=== PATIENT | female | born 1965 | race Caucasian/White ===

== ENCOUNTER 2022-12-07 15:54 | Outpatient (OUT) | payer BC, SELFPAY ==
[2022-12-07 16:42] LABS: Anion Gap 11.9; BUN Creatinine Ratio 27.4; Calcium 9.5 mg/dL (8.5-10.1); Carbon Dioxide 30.9 mmol/L (21.0-32.0); Chloride 102 mmol/L (98-107); Estimated GFR (African America >60 (>=60); Estimated GFR (Non-African Ame >60 (>=60); Glucose 120 mg/dL (74-106); Potassium 3.8 mmol/L (3.5-5.1); Sodium 141 mmol/L (136-145)
[2022-12-09 13:07] LABS: PTH, Intact 26 pg/mL (15-65)
== END 2022-12-07 15:55 | disposition home or self-care (01) ==
LOC: LAB 16:00
PROVIDERS: PCP Nurse Practitioner; Visit Provider Nurse Practitioner
DX: E55.9 Vitamin D deficiency, unspecified (principal)
CPT/HCPCS: 36415; 80048; 82306; 83970

== ENCOUNTER 2023-01-31 10:47 | Outpatient (OUT) | payer BC, SELFPAY ==
--- NOTE | 2023-01-31 11:15 | XR_ITS ---
The [address] [address] Patient Name: BEATRIZ AVERY MRN: [id number] date: 1965 Sex: F Assigned Patient Location: [facility] Current Patient Location: [facility] Accession/Order Number: [id number] Exam Date: 01/31/2023 11:00 Report Date: 01/31/2023 19:14 At the request of: SUJATHA DIAZ Procedure: XR elbow RT min 3V EXAM: XR shoulder RT min 2V, XR elbow RT min 3V HISTORY: Acute Pain Of Right Shoulder M25.511 COMPARISON: None. TECHNIQUE: 3 views of the right shoulder and 3 views of the right elbow were obtained. FINDINGS/impression: Right shoulder: There is mild osteoarthritis at the right acromioclavicular joint. The glenohumeral joint is preserved. Surgical clips are seen at the right axilla. 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 There is mild soft tissue swelling posterior to the right elbow. No acute fracture or subluxation is seen. Electronically authenticated by: KOMAL CAR Date: 01/31/2023 19:14
--- NOTE | 2023-01-31 11:15 | XR_ITS ---
The [address] [address] Patient Name: BEATRIZ AVERY MRN: [id number] date: 1965 Sex: F Assigned Patient Location: [facility] Current Patient Location: [facility] Accession/Order Number: [id number] Exam Date: 01/31/2023 11:00 Report Date: 01/31/2023 19:14 At the request of: SUJATHA DIAZ Procedure: XR shoulder RT min 2V EXAM: XR shoulder RT min 2V, XR elbow RT min 3V HISTORY: Acute Pain Of Right Shoulder M25.511 COMPARISON: None. TECHNIQUE: 3 views of the right shoulder and 3 views of the right elbow were obtained. FINDINGS/impression: Right shoulder: There is mild osteoarthritis at the right acromioclavicular joint. The glenohumeral joint is preserved. Surgical clips are seen at the right axilla. 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 There is mild soft tissue swelling posterior to the right elbow. No acute fracture or subluxation is seen. Electronically authenticated by: KOMAL CAR Date: 01/31/2023 19:14
== END 2023-01-31 10:48 | disposition home or self-care (01) ==
LOC: RAD 10:48
PROVIDERS: PCP Nurse Practitioner; Visit Provider Orthopaedic Surgery
DX: M25.521 Pain in right elbow (principal); M25.511 Pain in right shoulder; M19.011 Primary osteoarthritis, right shoulder
CPT/HCPCS: 73030; 73080

== ENCOUNTER 2023-02-17 15:57 | Outpatient (OUT) | payer BC, SELFPAY ==
--- OUTSIDE RECORDS SUMMARY | 2023-02-17 16:07 | XMS_ITS | CCD ---
Author Name Unknown Address [address] [place] [address] Organization [facility] Care Team Providers Care Student Counselor Name Role Phone KAREN VIEIRA Referring Unavailable DARIEL, KAREN CRISTO Primary Care Unavailable DARIELKARENIN Referring Unavailable DARIEL, KAREN MARROQUININ Primary Care Unavailable DARIEL, KAREN MEYERS Referring Unavailable DARIEL, KAREN MARROQUININ Primary Care Unavailable DARIEL, KAREN MEYERS Referring Unavailable DARIEL, KAREN MEYERS Primary Care Unavailable LILLY UNDERWOOD Referring Unavailable DARIEL, KAREN MEYERS Primary Care Unavailable LILLY UNDERWOOD Referring Unavailable DARIEL, KAREN MEYERS Primary Care Unavailable SchloemerYaquelin Primary Care Physician Unavaila ble SchloemerYaquelin Unavailable Unavailable Dariel, Karen Marroquinin Primary Care Provider DR GODWIN LOPEZ Consulting Unavailable JOHN, DR CONNELLY Admitting Unavailable JOHN, DR CONNELLY Attending Unavailable [facility] Primary Care Unava ilable AICHHOLZ, CONSULTING GROUP ANALYST SABA Admitting Unavailable AICHHOLZ, CONSULTING GROUP ANALYST SABA Attending Unavailable AICHHOLZ, CONSULTING GROUP ANALYST SABA Primary Care Unavailable AICHHOLZ, CONSULTING GROUP ANALYST SABA Consulting Unavailable Lilly Underwood MD Attending Unavailable Aichholz WELFARE VISITOR-CONSULTING GROUP ANALYST, Saba Anabelle Primary Care Unava Lilly Gregory MD Attending Unavailable Aichholz WELFARE VISITOR-CONSULTING GROUP ANALYST, Saba Ahn Primary Care Unava ilLilly Chamberlain MD Attending Unavailable Aichholz WELFARE VISITOR-CONSULTING GROUP ANALYST, Saba Ahn Primary Care Unava Lilly Gregory MD Attending Unavailable Lilly Underwood MD Attending Unavailable Aichholz WELFARE VISITOR-CONSULTING GROUP ANALYST, Saab Ahn Primary Care Unava Lilly Gregory MD Attending Unavailable Allergies Allergy Classification Reported Allergen(s) Allergy Type Date of Onset Reaction(s) Facility (1 source) No Known Medication Allergies; Translations: [No Known Medication Allergies] Propensity to adverse reactions to drug (disorder) [facility] Repository Medications Current Medications Medication Drug Class(es) Dates Sig (Normalized) Sig (Original) Diphenhydramine-APAP, sleep, (TYLENOL PM EXTRA STRENGTH PO) (2 sources) Diphenhydramine- A PAP, sleep, (TYLENOL PM EXTRA STRENGTH PO) Take by mouth nightly 0 Active Loratadine / Pseudoephedrine (2 sources) alpha-Adrenergic Agonist Loratadine-Pseudo ephedrine (CLARITIN-D 24 HOUR PO) Take by mouth daily. 0 Active tamoxifen 20 mg oral tablet (3 sources) Estrogen Agonist/Antagoni st Start: 09-26-2018 tamoxifen (NOLVADEX) 20 MG tablet Completed/Discontinued Medications Medication Drug Class(es) Dates Sig (Normalized) Sig (Original) loratadine 10 mg oral tablet (1 source) take 1 tablet by jonatan th once daily Claritin 10 mg oral tablet take 1 tablet (10 mg) by oral route once daily LORazepam 1 mg oral tablet (3 sources) Benzodiazepine take 1 tablet by jonatan th twice daily Ativan 1 mg oral tablet take 1 tablet (1 mg) by oral route 2 times per day take 1 tablet by jonatan th once daily as needed for anxiety LORazepam (ATIVAN) 1 MG tablet Take 1 mg by mouth nightly as needed for Anxiety.. 0 Active melatonin 5 mg oral tablet (3 sources) take 1 tablet by jonatan th once daily at bedtime melatonin 5 mg oral tablet take 1 tablet by oral route once a day (at bedtime) Melatonin 5 MG C APS Take by mouth nightly as needed 0 Active meloxicam 15 mg oral tablet (1 source) Nonsteroidal Anti-inflammatory Drug take 1 tablet by mouth once daily Mobic 15 mg oral tablet take 1 tablet (15 mg) by oral route once daily Problems Active Problems Problem Classification Problem Date Documented Date Episodic/Chronic Anxiety disorders (1 source) Anxiety disorder, unspecified Chronic Cancer of breast (1 source) Malignant neoplasm of unspecified site of unspecified female breast Chronic Diabetes mellitus without complication (4 sources) Other abnormal glucose; Translations: [OTHER ABNORMAL GLUCOSE] Onset: 10-30-2021 Episodic Mood disorders (1 source) Major depressive disorder, single episode, unspecified; Translations: [NANCY DEPRESS D/O SINGLE EPIS UNS] Onset: 02-23-2021 Chronic Osteoarthritis (2 sources) Osteoarthritis of right knee joint; Translations: [Primary osteoarthritis of right knee] Onset: 09-20-2017 09-20-2017 Other non-traumatic joint disorders (2 sources) Arthritis of knee; Translations: [Arthritis of knee] Onset: 10-06-2017 10-06-2017 Chronic Other nutritional; endocrine; and metabolic disorders (1 source) Obesity, unspecified; Translations: [OBESITY UNSPECIFIED] Onset: 11-03-2021 Chronic Other skin disorders (1 source) Actinic keratosis Onset: 12-10-2019 Episodic Residual codes; unclassified (1 source) Obstructive sleep apnea syndrome; Translations: [Obstructive sleep apnea] Chronic Unclassified (1 source) CONTACT W/AND (SUSP) EXPOS COVID-19; Translations: [CONTACT W/AND (SUSP) EXPOS COVID-19] Onset: 02-23-2021 Past or Other Problems Problem Classification Problem Date Documented Da te Episodic/Chronic Abdominal pain (1 source) Left lower quadrant pain; Translations: [Left groin pain] Episodic Other aftercare (1 source) Other assisted (current) drug therapy; Translations: [OTH MATERIALS INSPECTOR CURRENT DRUG THERAPY] Onset: 02-23-2021 Episodic Other upper respiratory infections (4 sources) Acute pharyngitis, unspecified; Translations: [Acute upper respiratory infection, unspecified] Onset: 02-22-2021 Episodic Results Test Name Value Interpretation Reference Range Facility .eGFRon 03-15-2022 GFR/1.73 sq M.predicted MDRD (S/P/Bld) [Vol rate/Area] mL/min/{1.73_m2} Normal >=60 [facility] Comment on above: Result Comment: [facility] Laboratories have implemented the eGFR calculation approach that does not have a coefficient for race and that conforms to the NKF-ASN Task Force Recommendations. Stages of Chronic Kidney Disease GFR Stage 3a Mild to moderate loss of kidney function 59 to 45 Stage 3b Moderate to severe loss of kidney function 44 to 33 Stage 4 Severe loss of kidney function 29 to 15 Stage 5 Kidney failure Less than 15 GFR calculated using the CKD-Epi Creatinine Equation (2020): eGFR = 142 X min(SCr/?, 1)? X max(SCr /?, 1)-1.200 X 0.9938Age X 1.012 [if female] Abbreviations/Units: eGFR (estimated glomerular filtration rate) = mL/min/1.73 m2 SCr (standardized serum creatinine) = mg/dL ? = 0.7 (females) or 0.9 (males) ? = -0.241 (females) or -0.302 (males) min = indicates the minimum of SCr/? or 1 max = indicates the maximum of SCr/? or 1 Age = years Performed By: #### E GFR #### [facility] (UNKNOWN) [address] [place] [address] CA 15-3on 03-15-2022 CA 15-3 6.5 unit/mL Normal 0.0-31.3 [facility] Comment on above: Result Comment: Test ing performed using the [employer] [place] Access BR Monitor assay. The concentration of CA 15-3 antigen in a given specimen determined with assays from different manufacturers can vary due to differences in assay methods and reagent specificity. Values obtained with different assay methods cannot be used interchangeably. This device is indicated for use in the measurement of CA 15-3 antigen to aid in the management of breast cancer patients. Serial testing for CA 15-3 antigen concentrations should be used in conjunction with other clinical methods for monitoring breast cancer. Serum or plasma CA 15-3 antigen concentrations should not be interpreted as absolute evidence for the presence or absence of cancer. The Access BR Monitor Assay should not be used as a cancer screening test. Performed By: #### C A15-3 #### [facility] [address] [place] [address] CBC w/ Diffon 03-15-2022 Erythrocyte distribution width (RBC) [Ratio] 13.4 % Normal 11.6-14.8 [facility] Comment on above: Performed By: #### C BC #### [facility] (UNKNOWN) [address] [place] [address] Hematocrit (Bld) [Volume fraction] 39.3 % Normal 36.0-46.0 [facility] Comment on above: Performed By: #### C BC #### [facility] (UNKNOWN) [address] [place] [address] Hemoglobin (Bld) [Mass/Vol] 13.4 g/dL Normal 12.0-16.0 [facility] Comment on above: Performed By: #### C BC #### [facility] (UNKNOWN) [address] [place] [address] MCH (RBC) [Entitic mass] 30.1 pg Normal 27.0-35.0 [facility] Comment on above: Performed By: #### C BC #### [facility] (UNKNOWN) [address] [place] [address] MCHC 34.0 % Normal 31.0-37.0 [facility] Comment on above: Performed By: #### C BC #### [facility] (UNKNOWN) [address] [place] [address] MCV (RBC) [Entitic vol] 88.5 fL Normal 80.0-100.0 [facility] Comment on above: Performed By: #### C BC #### [facility] (UNKNOWN) [address] [place] [address] Platelet 316 x10*3/mcL Normal 150-350 [facility] Comment on above: Performed By: #### C BC #### [facility] (UNKNOWN) [address] [place] [address] Platelet mean volume (Bld) [Entitic vol] 7.0 fL Normal 6.7-10.6 [facility] Comment on above: Performed By: #### C BC #### [facility] (UNKNOWN) [address] [place] [address] RBC 4.45 x10*6/mcL Normal 3.80-5.20 [facility] Comment on above: Performed By: #### C BC #### [facility] (UNKNOWN) [address] [place] [address] WBC 10.0 x10*3/mcL Normal 4.5-11.0 [facility] Comment on above: Performed By: #### C BC #### [facility] (UNKNOWN) [address] [place] [address] CEAon 03-15-2022 CEA 1.4 ng/mL Normal <=5.0 [facility] Comment on above: Result Comment: CEA Normal Ranges: Male & Female Non-Smoker: <3.0 ng/mL Smoker: <5.0 ng/mL Testing performed using the [employer] Access CEA assay. The concentration of CEA in a given specimen determined with different manufacturers can vary due to differences in assay methods and reagent specificity. Values obtained with different assay methods cannot be used interchangeably. Performed By: #### C EA #### [facility] [address] [place] [address] CMPon 03-15-2022 Albumin [Mass/Vol] 4.8 g/dL Normal 3.5-5.7 [facility] Comment on above: Performed By: #### C OMP #### [facility] (UNKNOWN) [address] [place] [address] Albumin/Globulin [Mass ratio] 1.8 {ratio} Normal 1.1-2.2 [facility] Comment on above: Performed By: #### C OMP #### [facility] (UNKNOWN) [address] [place] [address] Alk Phos 43 IU/L Normal 34-104 [facility] Comment on above: Performed By: #### C OMP #### [facility] (UNKNOWN) [address] [place] [address] ALT [Catalytic activity/Vol] 55 U/L High 7-52 [facility] Comment on above: Performed By: #### C OMP #### [facility] (UNKNOWN) [address] [place] [address] Anion gap [Moles/Vol] 10 mmol/L Normal 7-17 [facility] Comment on above: Performed By: #### C OMP #### [facility] (UNKNOWN) [address] [place] [address] AST [Catalytic activity/Vol] 27 U/L Normal 13-39 [facility] Comment on above: Performed By: #### C OMP #### [facility] (UNKNOWN) [address] [place] [address] Bili Total 0.7 mg/dL Normal 0.3-1.0 [facility] Comment on above: Performed By: #### C OMP #### [facility] (UNKNOWN) [address] [facility] [address] Calcium [Mass/Vol] 9.4 mg/dL Normal 8.6-10.2 [facility] Comment on above: Performed By: #### C OMP #### [facility] (UNKNOWN) [address] [place] [address] Chloride [Moles/Vol] 103 mmol/L Normal 98-107 [facility] Comment on above: Performed By: #### C OMP #### [facility] (UNKNOWN) [address] [place] [address] CO2 [Moles/Vol] 30 mmol/L Normal 21-31 [facility] Comment on above: Performed By: #### C OMP #### [facility] (UNKNOWN) [address] [place] [address] Creatinine [Mass/Vol] 0.8 mg/dL Normal 0.6-1.3 [facility] Comment on above: Performed By: #### C OMP #### [facility] (UNKNOWN) [address] [place] [address] Glucose [Mass/Vol] 116 mg/dL High 70-99 [facility] Comment on above: Performed By: #### C OMP #### [facility] (UNKNOWN) [address] [place] [address] Potassium [Moles/Vol] 4.0 mmol/L Normal 3.5-5.1 [facility] Comment on above: Performed By: #### C OMP #### [facility] (UNKNOWN) [address] [facility] [place] [address] Protein [Mass/Vol] 7.5 g/dL Normal 6.4-8.9 [facility] Comment on above: Performed By: #### C OMP #### [facility] (UNKNOWN) [address] [facility] [place] [address] Sodium [Moles/Vol] 139 mmol/L Normal 136-145 [facility] Comment on above: Performed By: #### C OMP #### [facility] (UNKNOWN) [address] [place] [address] Urea nitrogen [Mass/Vol] 16 mg/dL Normal 7-25 [facility] Comment on above: Performed By: #### C OMP #### [facility] (UNKNOWN) [address] [place] [address] Urea nitrogen/Creatinine [Mass ratio] 20.0 mg/mg Normal 10.0-20.0 [facility] Comment on above: Performed By: #### C OMP #### [facility] (UNKNOWN) [address] [place] [address] Diff Autoon 03-15-2022 Baso Absolute 0.1 x10*3/mcL Normal 0.0-0.2 [facility] Comment on above: Performed By: #### . Automated Diff #### [facility] (UNKNOWN) [address] [place] [address] Basophils/100 WBC (Bld) 0.9 % Normal 0.0-1.5 [facility] Comment on above: Performed By: #### . Automated Diff #### [facility] (UNKNOWN) [address] [place] [address] Eos Absolute 0.2 x10*3/mcL Normal 0.0-0.4 [facility] Comment on above: Performed By: #### . Automated Diff #### [facility] (UNKNOWN) [address] [place] [address] Eosinophils/100 WBC (Bld) 2.3 % Normal 0.0-5.4 [facility] Comment on above: Performed By: #### . Automated Diff #### [facility] (UNKNOWN) [address] [place] [address] Lymph Absolute 3.2 x10*3/mcL Normal 1.0-4.8 [facility] Comment on above: Performed By: #### . Automated Diff #### [facility] (UNKNOWN) [address] [place] [address] Lymphocytes/100 WBC (Bld) 32.1 % Normal 27.2-40.8 [facility] Comment on above: Performed By: #### . Automated Diff #### [facility] (UNKNOWN) [address] [place] [address] [place] Absolute 0.6 x10*3/mcL Normal 0.1-1.1 [facility] Comment on above: Performed By: #### . Automated Diff #### [facility] (UNKNOWN) [address] [place] [address] Monocytes/100 WBC (Bld) 6.2 % Normal 3.7-11.9 [facility] Comment on above: Performed By: #### . Automated Diff #### [facility] (UNKNOWN) [address] [place] [address] Neutro Absolute 5.8 x10*3/mcL Normal 1.8-7.7 [facility] Comment on above: Performed By: #### . Automated Diff #### [facility] (UNKNOWN) [address] [place] [address] Neutro Auto 58.5 % Normal 47.2-70.8 [facility] Comment on above: Performed By: #### . Automated Diff #### [facility] (UNKNOWN) [address] [place] [address] Medical Oncology Office/Clin ic Noteon 03-15-2022 Medical Oncology Office/Clinic Note History of Present Illness History of Present Illness: DIAGNOSIS: Stage II breast cancer of the right breast diagnosed by fine-needle aspiration 11/10/2016 underwent lumpectomy and sentinel lymph node biopsy tumor size 2.3 cm sentinel lymph node negative grade 3 ER positive AR positive HER-2/jose antonio negative PREVIOUS THERAPY: AC chemotherapy dose dense ?4 followed by Taxol weekly ?12 then to follow with radiation therapy and then hormonal therapy for 10 years l Date of first chemotherapy 12/10/2016 AC chemotherapy completed on 01/28/2017. Blood work confirms postmenopausal status therefore will be using anastrozole for hormone therapy. Weekly Taxol is postponed because of cellulitis and DVT of the arm and radiation has been started on 17 February 2017.Completed 21 treatments on 03/30/2017. Then started Taxol weekly ?12 first dose 04/01/2017 Last dose 06/17/2017 then started on Arimidex therapy plan is for 5-10 years. First day of Arimidex 06/27/2017 Received 1 dose of Prolia November 2017 had joint pain therefore discontinued and continued on Arimidex alone Arimidex was discontinued due to arthralgias on 05/26/2018 to restart with tamoxifen 20 mg daily Tamoxifen was discontinued on 08/02/2018 when there was concern about a blood clot in the left leg was no blood clot in the leg and then she underwent rheumatology work-up and improved her symptoms so tamoxifen was restarted at low-dose 10 mg a day on 11/07/2018 to escalate up to 20 mg than reduced back to 10 mg on 12/13/19 DIAGNOSTIC DATA: Bone density normal 06/03/2017 Colonoscopy 2014 released till 2019 Bilateral mammogram 11/14/2017 new 6 mm irregular density in the left breast ultrasound recommended Ultrasound breast 11/14/2017 5 mm lobulated density which could be a cyst biopsy recommended. Aspiration was done on 11/17/2017 and all collapsed therefore biopsy was not needed follow-up recommended Doppler at [facility] 08/03/2018 no signs of blood clots CT scan chest abdomen and pelvis [facility] [place] words lungs completely clear thyroid gland normal surgical clips noted in the right axilla 3.6 cm fluid collection in the right axilla 3 small hepatic lesions noted for which MRI is suggested mildly prominent mesenteric lymph nodes noted in the left upper abdomen but none greater than 1 cm no bony abnormalities noted MRI of liver and abdomen 08/17/2018 for lesions in the liver most compatible with benign hepatic hemangiomas Three-way view of the right foot 10/05/2018 Calcaneal spurring Mammogram 11/21/2018 [facility] normal Left hip x-ray at [facility] December 2018 normal Mammogram [facility] 11/21/2018 normal Symptoms of COVID-17 January 2020 but did not test positive Urine culture 03/23/2020 Klebsiella pneumonia was treated with Bactrim Colonoscopy by Dr. Couch 03/07/2020 1 hyperplastic polyp cleared for 5 years Mammogram 12/18/2019 [facility] normal edgardo and edgardo August 13 2020 Cesar is also vaccinated covid 19 completely vacationed covid 19 omicron feb 2021 giuseppe also she had UTI week prior was not hospitalized treated with zpack by Alex Greco in 2020 skin exam clear mammo august 2021 SURVEY DATA TECHNICIAN HISTORY: had a hysterectomy for cyst ovaries were left intact postmenopausal RECENT THERAPY: Tamoxifen therapy restarted on 11/07/2018 stopped on September 23 2020 due to side effects rash trouble breathing and vision stopped and went onto observation iv iron 11/07/2020 current therapy observation 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 Aliya drives herself in today for follow-up visit she was last seen here 6 months ago she is off the tamoxifen and she is on observation and doing well in fact she is not really on any routine medications at all but she has a new family doctor in [place] and nurse practitioner who wanted to get her on some new medication to help her with weight loss because she felt that a lot of things stemmed from that because she said she will actually has prediabetes however there was no insurance coverage for that She will sometimes have some chest discomfort and some even though she has a CPAP machine sometimes she will wake up gasping for air so I talked her about seeing the sleep clinic but she wants to wait right now and get ahead of some things financially There is a lot going on she lives at home with her they have no immediate trips planned just some maybe we can trips here and there but her grandson who was just born last summer has been diagnosed with a chromosomal abnormality Marilee syndrome he is actually already had heart surgery and has a lot of other medical things and this is actually necessitated their daughter the mother of the baby to resign from her full-time position because her grandson requires so much medical care so she and her are there a lot helping out not only with the baby but with the 4-year-old granddaughter also On exam her (more content not included)... Normal [facility] CBC AUTO DIFFon 10-30-2021 BASO # 0.1 103/ul Normal 0.0-0.1 [facility] Comment on above: Performed By: #### C BC #### [facility] [address] [place], [place] [address] Dr. Purnima Montez Basophils/100 WBC (Bld) 0.8 % Normal 0.2-2.0 [facility] Comment on above: Performed By: #### C BC #### [facility] [address] [place] [address] Dr. Purnima Montez EO # 0.2 103/ul Normal 0.0-0.7 [facility] Comment on above: Performed By: #### C BC #### [facility] [address] [place] [address] Dr. Purnima Montez Eosinophils/100 WBC (Bld) 2.4 % Normal 0.9-7.0 [facility] Comment on above: Performed By: #### C BC #### [facility] [address] [place] [address] Dr. Purnima Montez Erythrocyte distribution width (RBC) [Ratio] 12.7 % Normal 11.0-15.0 [facility] Comment on above: Performed By: #### C BC #### [facility] [address] [place] [address] Dr. Purnima Montez Hematocrit (Bld) [Volume fraction] 39.2 % Normal 36.0-48.0 [facility] Comment on above: Performed By: #### C BC #### [facility] [address] [place] [address] Dr. Purnima Montez Hemoglobin (Bld) [Mass/Vol] 12.7 g/dL Normal 12.0-16.0 [facility] Comment on above: Performed By: #### C BC #### [facility] [address] [place] [address] Dr. Purnima Montez IG # 0.03 10e3/ul Normal 0.00-0.03 [facility] Comment on above: Performed By: #### C BC #### [facility] [address] [place] [address] Dr. Purnima Montez IG % 0.4 % Normal 0.0-0.5 [facility] Comment on above: Performed By: #### C BC #### [facility] [address] [place] [address] Dr. Purnima Montez LYMPH # 2.8 103/ul Normal 1.2-3.8 [facility] Comment on above: Performed By: #### C BC #### [facility] [address] [place] [address] Dr. Purnima Montez Lymphocytes/100 WBC (Bld) 35.0 % Normal 20.5-60.0 [facility] Comment on above: Performed By: #### C BC #### [facility] [address] [place] [address] Dr. Purnima Montez MANUAL DIFF REQ NO Normal [facility] Comment on above: Performed By: #### C BC #### [facility] [address] [place] [address] Dr. Purnima Montez MCH (RBC) [Entitic mass] 29.9 pg Normal 26.7-34.0 [facility] Comment on above: Performed By: #### C BC #### [facility] [address] [place] [address] Dr. Purnima Montez MCHC (RBC) [Mass/Vol] 32.4 g/dL Normal 29.9-35.2 [facility] Comment on above: Performed By: #### C BC #### [facility] Laboratory [address] [place] [address] Dr. Purnima Montez MCV (RBC) [Entitic vol] 92.2 fL Normal 81.0-99.0 [facility] Comment on above: Performed By: #### C BC #### [facility] Laboratory [address] [place] [address] Dr. Purnima Montez MONO # 0.7 103/ul Normal 0.3-0.8 [facility] Comment on above: Performed By: #### C BC #### [facility] Laboratory [address] [place] [address] Dr. Purnima Montez Monocytes/100 WBC (Bld) 8.2 % Normal 1.7-12.0 [facility] Comment on above: Performed By: #### C BC #### [facility] Laboratory [address] [place] [address] Dr. Purnima Montez NEUT # 4.2 103/ul Normal 1.4-6.5 [facility] Comment on above: Performed By: #### C BC #### [facility] Laboratory [address] [place] [address] Dr. Purnima Montez Neutrophils/100 WBC (Bld) 53.2 % Normal 43.0-75.0 [facility] Comment on above: Performed By: #### C BC #### [facility] Laboratory [address] [place] [address] Dr. Purnima Montez Platelet mean volume (Bld) [Entitic vol] 9.8 fL Normal 9.5-13.5 [facility] Comment on above: Performed By: #### C BC #### [facility] Laboratory [address] [place] [address] Dr. Purnima Montez PLT 312 103/ul Normal 150-450 [facility] Comment on above: Performed By: #### C BC #### [facility] Laboratory [address] [place] [address] Dr. Purnima Montez RBC 4.25 106/ul Normal 4.20-5.40 [facility] Comment on above: Performed By: #### C BC #### [facility] Laboratory [address] [place] [address] Dr. Purnima Montez WBC 7.9 103/ul Normal 4.0-11.0 [facility] Comment on above: Performed By: #### C BC #### [facility] Laboratory [address] [place] [address] Dr. Purnima Montez FREE T4on 10-30-2021 Free T4 [Mass/Vol] 0.88 ng/dL Normal 0.76-1.46 [facility] Comment on above: Performed By: #### F T4 #### [facility] Laboratory [address] [place] [address] Dr. Purnima Montez GLYCOHEMOGLOBIN A1Con 2021 ADA RECOMMENDATION SEE BELOW Normal [facility] Comment on above: Result Comment: ADA RECOMMENDED LIMIT 4.0 - 6.0 ADA THERAPEUTIC TARGET < 7.0 ACTION SUGGESTED > 7.0 Performed By: #### A 1C #### [facility] Laboratory [address] [place] [address] Dr. Purnima Montez Glucose [Mass/Vol] 128 mg/dL Normal [facility] Comment on above: Performed By: #### A 1C #### [facility] Laboratory [address] [place] [address] Dr. Purnima Montez HbA1c (Bld) [Mass fraction] 6.1 % Normal 4.5-6.2 [facility] Comment on above: Performed By: #### A 1C #### [facility] Laboratory [address] [place] [address] Dr. Purnima Montez LIPID PROFILEon 10-30-2021 CHOL-HDL RATIO NORM SEE BELOW Normal [facility] Comment on above: Result Comment: 3.3 - 4.4 LOW RISK 4.4 - 7.1 AVERAGE RISK 7.1 - 11.0 MODERATE RISK >11.0 HIGH RISK Performed By: #### T SH, CMP, LIPID #### [facility] Laboratory [address] [place] [address] Dr. Purnima Montez Cholesterol [Mass/Vol] 225 mg/dL Critically high <=200 [facility] Comment on above: Performed By: #### T SH, CMP, LIPID #### [facility] Laboratory [address] [place] [address] Dr. Purnima Montez Cholesterol in HDL [Mass/Vol] 55 mg/dL Normal 40-60 [facility] Comment on above: Performed By: #### T SH, CMP, LIPID #### [facility] Laboratory [address] [place] [address] Dr. Purnima Montez Cholesterol in LDL [Mass/Vol] 154.6 mg/dL Normal [facility] Comment on above: Performed By: #### T SH, CMP, LIPID #### [facility] Laboratory [address] [place] [address] Dr. Purnima Montez Cholesterol.total/Ch olesterol in HDL [Mass ratio] 4.1 {ratio} Normal [facility] Comment on above: Performed By: #### T SH, CMP, LIPID #### [facility] Laboratory [address] [place] [address] Dr. Purnima Montez HDL NORMAL > or = 60 mg/dl - LOW CARDIOVASCULAR RISK <40 mg/dl - HIGH CARDIOVASCULAR RISK Normal [facility] Comment on above: Performed By: #### T SH, CMP, LIPID #### [facility] Laboratory [address] [place] [address] Dr. Purnima Montez LDL CALC NORMAL SEE BELOW Normal [facility] Comment on above: Result Comment: <100 mg/dl OPTIMAL 100 - 129 mg/dl NEAR OR ABOVE OPTIMAL 130 - 159 mg/dl BORDERLINE HIGH 160 - 189 mg/dl HIGH >190 mg/dl VERY HIGH Performed By: #### T SH, CMP, LIPID #### [facility] Laboratory [address] [address] [address] Purnima Montez Triglyceride [Mass/Vol] 77 mg/dL Normal <=150 [facility] Comment on above: Performed By: #### T SH, CMP, LIPID #### [facility] Laboratory [address] [address] [address] Purnima Montez VLDL CALC 15.4 mg/dL Normal [facility] Comment on above: Performed By: #### T SH, CMP, LIPID #### [facility] Laboratory [address] [place] [address] Dr. Purnima Montez PROF 14(COMP METB)on 022 Albumin [Mass/Vol] 4.2 g/dL Normal 3.4-5.0 [facility] Comment on above: Performed By: #### T SH, CMP, LIPID #### [facility] Laboratory [address] [address] [address] Purnima Montez Albumin/Globulin [Mass ratio] 1.3 {ratio} Normal [facility] Comment on above: Performed By: #### T SH, CMP, LIPID #### [facility] Laboratory [address] [address] [address] Purnima Montez ALP [Catalytic activity/Vol] 50 U/L Normal 46-116 [facility] Comment on above: Performed By: #### T SH, CMP, LIPID #### [facility] Laboratory [address] [address] [address] Purnima Montez ALT [Catalytic activity/Vol] 80 U/L Critically high 14-59 [facility] Comment on above: Performed By: #### T SH, CMP, LIPID #### [facility] Laboratory [address] [address] [address] Purnima Montez Anion gap [Moles/Vol] 14.0 mmol/L Normal [facility] Comment on above: Performed By: #### T SH, CMP, LIPID #### [facility] Laboratory [address] [address] [address] Purnima Montez AST [Catalytic activity/Vol] 29 U/L Normal 15-37 [facility] Comment on above: Performed By: #### T SH, CMP, LIPID #### [facility] Laboratory [address] [place] [address] Dr. Purnima Montez Bilirubin [Mass/Vol] 0.7 mg/dL Normal 0.2-1.0 [facility] Comment on above: Performed By: #### T SH, CMP, LIPID #### [facility] Laboratory [address] [place] [address] Dr. Purnima Montez Calcium [Mass/Vol] 9.2 mg/dL Normal 8.5-10.1 [facility] Comment on above: Performed By: #### T SH, CMP, LIPID #### [facility] Laboratory [address] [place] [address] Dr. Purnima Montez Chloride [Moles/Vol] 102 mmol/L Normal 98-107 [facility] Comment on above: Performed By: #### T SH, CMP, LIPID #### [facility] Laboratory [address] [place] [address] Dr. Purnima Montez CO2 [Moles/Vol] 29.2 mmol/L Normal 21.0-32.0 [facility] Comment on above: Performed By: #### T SH, CMP, LIPID #### [facility] Laboratory [address] [place] [address] Dr. Purnima Montez Creatinine [Mass/Vol] 0.70 mg/dL Normal 0.55-1.02 [facility] Comment on above: Performed By: #### T SH, CMP, LIPID #### [facility] Laboratory [address] [place] [address] Dr. Purnima Montez EGFR-AF ALBANIAN >60 Normal >=60 [facility] Comment on above: Performed By: #### T SH, CMP, LIPID #### [facility] Laboratory [address] [place] [address] Dr. Purnima Montez EGFR-NON AF ALBANIAN >60 Normal >=60 [facility] Comment on above: Performed By: #### T SH, CMP, LIPID #### [facility] Laboratory [address] [address] [address] Purnima Montez Globulin (S) [Mass/Vol] 3.3 g/dL Normal [facility] Comment on above: Performed By: #### T SH, CMP, LIPID #### [facility] Laboratory [address] [address] [address] Purnima Montez Glucose [Mass/Vol] 127 mg/dL Critically high 74-106 [facility] Comment on above: Performed By: #### T SH, CMP, LIPID #### [facility] Laboratory [address] [place] [address] Dr. Purnima Montez Potassium [Moles/Vol] 4.2 mmol/L Normal 3.5-5.1 [facility] Comment on above: Performed By: #### T SH, CMP, LIPID #### [facility] Laboratory [address] [place] [address] Dr. Purnima Montez Protein [Mass/Vol] 7.5 g/dL Normal 6.4-8.2 [facility] Comment on above: Performed By: #### T SH, CMP, LIPID #### [facility] Laboratory [address] [place] [address] Dr. Purnima Montez Sodium [Moles/Vol] 141 mmol/L Normal 136-145 [facility] Comment on above: Performed By: #### T SH, CMP, LIPID #### [facility] Laboratory [address] [place] [address] Dr. Purnima Montez Urea nitrogen [Mass/Vol] 18.0 mg/dL Normal 7.0-18.0 [facility] Comment on above: Performed By: #### T SH, CMP, LIPID #### [facility] Laboratory [address] [place] [address] Dr. Purnima Montez Urea nitrogen/Creatinine [Mass ratio] 25.7 mg/mg Normal [facility] Comment on above: Performed By: #### T SH, CMP, LIPID #### [facility] Laboratory [address] [place], [place] [id number] Dr. Purnima Montez TSHon 10-30-2021 TSH 1.844 uIU/mL Normal 0.358-3.740 [facility] Comment on above: Performed By: #### T SH, CMP, LIPID #### [facility] Laboratory [address] [place] [address] Dr. Purnima Montez UA RANDOM W/MICROSCOPICon BACTERIA NONE SEEN Normal NONE SEEN [facility] Comment on above: Performed By: #### U AMIC #### [facility] Laboratory [address] [place] [address] Dr. Purnima Montez Bilirubin Ql (U) Negative Normal NEGATIVE [facility] Comment on above: Performed By: #### U AMIC #### [facility] Laboratory [address] [place] [address] Dr. Purnima Montez CAST NONE SEEN Normal NONE SEEN [facility] Comment on above: Performed By: #### U AMIC #### [facility] Laboratory [address] [place] [address] Dr. Purnima Montez Clarity (U) CLOUDY Abnormal CLEAR [facility] Comment on above: Performed By: #### U AMIC #### [facility] Laboratory [address] [place] [address] Dr. Purnima Montez Color (U) LT. YELLOW Normal YELLOW [facility] Comment on above: Performed By: #### U AMIC #### [facility] Laboratory [address] [place] [address] Dr. Purnima Montez Crystals LM Nom (Urine sed) SEEN Abnormal NONE SEEN [facility] Comment on above: Performed By: #### U AMIC #### [facility] Laboratory [address] [place] [address] Dr. Purnima Montez Epithelial cells LM Ql (Urine sed) NONE SEEN Normal NONE SEEN /RARE [facility] Comment on above: Performed By: #### U AMIC #### [facility] Laboratory [address] [place] [address] Dr. Purnima Montez Glucose Ql (U) Negative Normal NEGATIVE [facility] Comment on above: Performed By: #### U AMIC #### [facility] Laboratory [address] [address] [address] Purnima Montez Hemoglobin Ql (U) Negative Normal NEGATIVE [facility] Comment on above: Performed By: #### U AMIC #### [facility] Laboratory [address] [address] [address] Purnima Montez Ketones Ql (U) Negative Normal NEGATIVE [facility] Comment on above: Performed By: #### U AMIC #### [facility] Laboratory [address] [address] [address] Purnima Montez LEUKOCYTES SMALL Abnormal NEGATIVE [facility] Comment on above: Performed By: #### U AMIC #### [facility] Laboratory [address] [place] [address] Dr. Purnima Montez MUCOUS NONE SEEN Normal NONE SEEN [facility] Comment on above: Performed By: #### U AMIC #### [facility] Laboratory [address] [place] [address] Dr. Purnima Montez Nitrite Ql (U) Negative Normal NEGATIVE [facility] Comment on above: Performed By: #### U AMIC #### [facility] Laboratory [address] [place] [address] Dr. Purnima Montez pH (U) 6.0 [pH] Normal 5-9 [facility] Comment on above: Performed By: #### U AMIC #### [facility] Laboratory [address] [place] [address] Dr. Purnima Montez RBC NONE SEEN Abnormal 0-2 [facility] Comment on above: Performed By: #### U AMIC #### [facility] Laboratory [address] [place] [address] Dr. Purnima Montez SPEC GRAVITY 1.025 Normal 1.005-<=1.025 [facility] Comment on above: Performed By: #### U AMIC #### [facility] Laboratory [address] [place] [address] Dr. Purnima Montez UA PROTEIN Negative Normal NEGATIVE/ TRACE [facility] Comment on above: Performed By: #### U AMIC #### [facility] Laboratory [address] [place] [address] Dr. Purnima Montez Urobilinogen Qn (U) 0.2 {Bigg'U}/dL Normal 0.2 - 1. 0 [facility] Comment on above: Performed By: #### U AMIC #### [facility] Laboratory [address] [place] [address] Dr. Purnima Montez WBC 0-2 Abnormal NONE SEEN [facility] Comment on above: Performed By: #### U AMIC #### [facility] Laboratory [address] [place] [address] Dr. Purnima Montez CULTURE THROATon 02-22-2021 CULTURE THROAT Culture Observations: NORMAL RESPIRATORY BRIDGET. Normal [facility] Comment on above: Performed By: #### S SCRN, THRTCX #### [facility] Laboratory [address] [place] [address] Dr. Purnima Montez [facility]29 SARS-CoV-2 (COVID-19) RNA FRANCOIS+probe Ql (Unsp spec) Not detected Normal NOT DETECTED [facility] Comment on above: Result Comment: This test is not yet approved or cleared by the [place] FDA. When there are no FDA-approved or cleared tests available, and other criteria are met, FDA can make tests available under an emergency access mechanism called an Emergency Use Authorization (EUA). The EUA for this test is supported by the Bacteriology Professor of Health and Human Service's (HHS's) declaration that circumstances exist to justify the emergency use of in vitro diagnostics for the detection and/or diagnosis of the virus that causes COVID-19. This EUA will remain in effect (meaning this test can be used) for the duration of the COVID-19 declaration justifying emergency of IVDs, unless it is terminated or revoked by FDA (after which the test may no longer be used). When diagnostic testing is negative, the possibility of a false negative should be considered in the context of a patient's recent exposures and the presence of clinical signs and symptoms consistent with SARS-CoV-2. Performed By: #### F T4 #### [facility] Laboratory [address] [place] [address] Dr. Purnima Montez INFLUENZA A AND B AGon 02-22 INFLUANEGH SEE BELOW Normal [facility] Comment on above: Result Comment: Nega tive for Flu A protein angiten. Infection due to Flu A cannot be ruled out. Flu A angiten in the sample may be below the detection limit of the test. Performed By: #### I NFLUAB #### [facility] Laboratory [address] [place] [address] Dr. Purnima Monte[facility] SEE BELOW Normal [facility] Comment on above: Result Comment: Nega tive for Flu B protein antigen. Infection due to Flu B cannot be ruled out. Flu B antigen in the sample may be below the detection limit of the test. Performed By: #### I NFLUAB #### [facility] Laboratory [address] [place] [address] Dr. Purnima Montez INFLUENZA A AG Negative Normal NEGATIVE SEE COMMENT [facility] Comment on above: Performed By: #### I NFLUAB #### [facility] Laboratory [address] [place] [address] Dr. Purnima Montez INFLUENZA B AG Negative Normal NEGATIVE SEE COMMENT [facility] Comment on above: Performed By: #### I NFLUAB #### [facility] Laboratory [address] [place] [address] Dr. Purnima Montez INTERNAL CONTROLS Within Normal Limits Normal Wi thin Normal Limits [facility] Comment on above: Performed By: #### I NFLUAB #### [facility] Laboratory [address] [place] [address] Dr. Purnima Montez STREPT SCREENon 02-22-2021 STREP SCREEN A Negative Normal NEGATIVE [facility] Comment on above: Performed By: #### S SCRN, THRTCX #### [facility] Laboratory [address] [place] [address] Dr. Purnima Montez Urine Cultureon 03-23-2020 Bacteria identified Cx Nom (U) Reason for Exam Dysuria Urine Reason for Exam: Dysuria : Urine ORGANISM: Klebsiella pneumoniae (O:KLEPNE) [place] Count 100,000 Aerobic MARISOL Charge (NUC86) ----- SUSCEPTIBILITY ---- ORGANISM: O:KLEPNE ANTIBIOTIC INTERPRETATION MARISOL Amikacin S <16 Ampicillin R >16 Ampicillin/Sulbactam S <8/4 Aztreonam S <4 Cefazolin S <2 Cefepime S <2 Ceftazidime S <1 Ceftazidime/Avibacta m S <8 Ceftriaxone S <1 Ciprofloxacin S <1 Ertapenem S <0.5 Gentamicin S <4 Levofloxacin S <2 Meropenem S <1 Nitrofurantoin I 64 Piperacillin/Tazobac morales S <16 Tetracycline S <4 Tigecycline S <2 Tobramycin S <4 Trimethoprim/Sulfame thoxazole S <2/38 S = SUSCEPTIBLE I = INTERMEDIATE R = RESISTANT BLANK = DATA NOT AVAILABLE, OR DRUG NOT ADVISABLE OR TESTED R* = RESISTANCE DUE TO EXTENDED SPECTRUM BETA-LACTAMASES ESBL = EXTENDED SPECTRUM BETA-LACTAMASE TFG = THYMIDINE-DEPENDENT STRAIN NINO = BETA-LACTAMASE POSITIVE IB = INDUCIBLE BETA-LACTAMASE. APPEARS IN PLACE OF 'S' WITH SPECIES KNOWN TO POSSESS INDUCIBLE BETA-LACTAMASES. POTENTIALLY THEY MAY BECOME RESISTANT TO ALL B-LACTAM DRUGS. PERFORMED BY: [place] [address] PATHOLOGIST TEACHER AIDE MYA MARTINEZ M.D. [facility] Comment on above: Performed By: #### C UU #### [address] Glucose, Fastingon 9 Glucose [Mass/Vol] 119 mg/dL High 70-99 [facility] Comment on above: Performed By: #### G TAVON VICENTE #### [facility] Lab [address] [place] [address] [employer]inder [employer]: Pablo Bah MD Lipid Profileon 02-27-2019 Cholesterol [Mass/Vol] 240 mg/dL High <200 [facility] Comment on above: Result Comment: Cholesterol Guidelines: <200 Desirable 200-240 Borderline >240 Undesirable Performed By: #### G TAVON VICENTE #### [facility] [address] [place] [address] [employer]: Pablo Bah MD Cholesterol in HDL [Mass/Vol] 66 mg/dL Normal >40 [facility] Comment on above: Result Comment: HDL Guidelines: <40 Undesirable 40-59 Borderline >59 Desirable Performed By: #### Onel VICENTE LIPR #### [facility] [address] [place] [address] [employer]: Pablo Bah MD Cholesterol in LDL [Mass/Vol] 152 mg/dL High 0-130 [facility] Comment on above: Result Comment: LDL Guidelines: <100 Desirable 100-129 Near to/above Desirable 130-159 Borderline >159 Undesirable Direct (measured) LDL and calculated LDL are not interchangeable tests. Performed By: #### Onel VICENTE LIPR #### [facility] [address] [place] [address] [employer]: Pablo Bah MD Cholesterol.total/Ch olesterol in HDL [Mass ratio] 3.6 {ratio} Normal <5 [facility] Comment on above: Performed By: #### Onel VICENTE LIPR #### [facility] [address] [place] [address] [employer]: Pablo Bah MD Triglyceride [Mass/Vol] 112 mg/dL Normal <150 [facility] Comment on above: Result Comment: Triglyceride Guidelines: <150 Desirable 150-199 Borderline 200-499 High >499 Very high Based on AHA Guidelines for fasting triglyceride, November 2011. Performed By: #### Onel VICENTE LIPR #### [facility] [address] [place] [address] [employer]: Pablo Bah MD Cholesterol in VLDL [Mass/Vol] NOT REPORTED Normal 1-30 [facility] Comment on above: Performed By: #### Onel VICENTE LIPR #### [facility] [address] [place] [address] [employer]: Pablo Bah MD XR HIP LEFT (2-3 VIEWS)on XR HIP LEFT (2-3 VIEWS) EXAMINATION: TWO XRAY VIEWS OF THE LEFT HIP 01/01/2019 4:07 pm COMPARISON: None. HISTORY: ORDERING SYSTEM PROVIDED HISTORY: Left groin pain FINDINGS: 2 images of the left hip were provided. Alignment is normal. There is no trabecular distortion or acute displaced fracture. IMPRESSION: No acute osseous abnormality. Interpreted by: Eduardo Redding MD Signed by: Eduardo Redding MD 01/01/19 Final result Normal [facility] No acute osseous abnormality. [facility] [place] EXAMINATION: TWO XRAY VIEWS OF THE LEFT HIP 01/01/2019 4:07 pm COMPARISON: None. HISTORY: ORDERING SYSTEM PROVIDED HISTORY: Left groin pain FINDINGS: 2 images of the left hip were provided. Alignment is normal. There is no trabecular distortion or acute displaced fracture. [facility] [place] Antoni, [facility] Incoming Radiant Results From [employer] - 01/01/2019 4:32 PM EST EXAMINATION: TWO XRAY VIEWS OF THE LEFT HIP 01/01/2019 4:07 pm COMPARISON: None. HISTORY: ORDERING SYSTEM PROVIDED HISTORY: Left groin pain FINDINGS: 2 images of the left hip were provided. Alignment is normal. There is no trabecular distortion or acute displaced fracture. IMPRESSION: No acute osseous abnormality. [facility] Nuclear Ab IF (S) [Titer] 1:1280 Abnormal <1:40,1:40 [facility] Comment on above: Performed By: #### 5 0103, 18411 #### [facility] [address] [place] [address], [place] Nuclear Ab IF (S) [Titer] HOMOGENEOUS AND SPECKLED Normal [facility] Comment on above: Performed By: #### 5 0103, 18281 #### [facility] [address] [place] [address], [place] ANTI DNAon 10-05-2018 ANTI DNA <1:10 Normal <1:10 [facility] Comment on above: Performed By: #### 5 0103, 51976 #### [facility] [address] [place] [address], [place] ANTI-BETA 2 GLYCOPROTEIN 1on 10-05-2018 ANTI B2GP1 IGG 1.2 g units Normal 0.0-19.9 The [place] Comment on above: Performed By: #### 5 0103, 03071 #### [facility] [address] [facility] [address], [facility] ANTI B2GP1 IGM 1.4 m units Normal 0.0-19.9 The [place] Comment on above: Performed By: #### 5 010, 81887 #### [facility] [address] [place] [address], [facility] ANTI-ENAon 10-05-2018 ANTI SM Negative Normal NEG,NEGATIVE,N eg [facility] Comment on above: Performed By: #### 5 010, 25546 #### [facility] [address] [place] [address], [facility] ANTI SM/ANTIRNP Negative Normal NEG,NEGATIVE ,N eg [facility] Comment on above: Performed By: #### 5 102, 94939 #### [facility] [address] [place] [address], [facility] ANTICARDIOLIPIN ANTIBODYon 0 10-05-2018 CARDIOLIPIN IGG 7.4 GPL Normal 0.0-22.9 The [place] Comment on above: Performed By: #### 5 102, 10750 #### [facility] [address] [facility] [place] [address], [facility] CARDIOLIPIN IGM 8.0 MPL Normal 0.0-10.9 The [place] Comment on above: Performed By: #### 5 010, 80439 #### [facility] [address] [place] [address], [facility] C REACTIVE PROTEINon 019 CRP [Mass/Vol] 2.0 mg/L Normal 0.0-7.[address] [facility] Comment on above: Performed By: #### 1 0220, 19064, 36253, 52919 #### [facility] [address] CBC W/DIFFon 10-05-2018 ABS BASOPHILS 0.1 10*3/uL Normal 0.0-0.[address] [facility] Comment on above: Performed By: #### 5 102, 48787 #### [facility] [address] [facility] [place] [address], [facility] ABS IMM GRANS 0.0 10*3/uL Normal 0.0-0.[address] [facility] Comment on above: Performed By: #### 5 102, 19568 #### [facility] [address] ABS NEUTROPHILS 4.3 10*3/uL Normal 1.6-7.6 The [facility] Comment on above: Performed By: #### 5 102, 34828 #### [facility] [address] Basophils/100 WBC (Bld) 1.0 % Normal 0.0-1.0 [facility] Comment on above: Performed By: #### 5 102, 03752 #### [facility] [address] [place] [address], [facility] Eosinophils (Bld) [#/Vol] 0.1 10*3/uL Normal 0.0-0.5 [facility] Comment on above: Performed By: #### 5 102, 16287 #### [facility] [address] [place] [address], [facility] Eosinophils/100 WBC (Bld) 1.8 % Normal 0.0-6.0 [facility] Comment on above: Performed By: #### 5 102, 90440 #### [facility] [address] Erythrocyte distribution width (RBC) [Ratio] 12.5 % Normal 11.5-15.0 [facility] Comment on above: Performed By: #### 5 102, 13092 #### [facility] [address] [place] [address], [facility] Hematocrit (Bld) [Volume fraction] 39.3 % Normal 36.0-45.0 [facility] Comment on above: Performed By: #### 102, 60343 #### [facility] [address] [place] [address], [facility] Hemoglobin (Bld) [Mass/Vol] 13.2 g/dL Normal 12.0-15.0 [facility] Comment on above: Performed By: #### 5 102, 93516 #### [facility] [address] [place] [address], [facility] IMMATURE GRANS 0.3 % Normal 0.0-1.0 The [facility] shereen [facility] Comment on above: Performed By: #### 5 102, 49461 #### [facility] [address] [place] [address], [facility] Lymphocytes (Bld) [#/Vol] 2.2 10*3/uL Normal 1.2-4.0 [facility] Comment on above: Performed By: #### 5 102, 44034 #### [facility] [address] [place] [address], [facility] Lymphocytes/100 WBC (Bld) 30.9 % Normal 20.0-45.0 [facility] Comment on above: Performed By: #### 5 102, 62920 #### [facility] [address] [place] [id number], [facility] MCH (RBC) [Entitic mass] 30.6 pg Normal 27.0-33.0 [facility] Comment on above: Performed By: #### 102, 86548 #### [facility] [address] [place] [id number], [facility] MCHC (RBC) [Mass/Vol] 33.6 g/dL Normal 32.0-35.0 [facility] Comment on above: Performed By: #### 5 102, 27413 #### [facility] [address] [place] [address], [facility] MCV (RBC) [Entitic vol] 91.2 fL Normal 82.0-98.0 [facility] Comment on above: Performed By: #### 5 102, 86529 #### [facility] [address] [place] [address], [facility] Monocytes (Bld) [#/Vol] 0.5 10*3/uL Normal 0.1-1.0 [facility] Comment on above: Performed By: #### 5 102, 15613 #### [facility] [address] [place] [address], [facility] MONOS 7.4 % Normal 5.0-12.0 [facility] Comment on above: Performed By: #### 5 102, 97088 #### [facility] [address] [facility] [place] [address], [facility] Neutrophils/100 WBC (Bld) 58.6 % Normal 40.0-72.0 [facility] Comment on above: Performed By: #### 5 102, 76226 #### [facility] [address] [facility] [place] [address], [facility] Nucleated RBC/100 WBC (Bld) [Ratio] 0 % Normal 0-0 [facility] Comment on above: Performed By: #### 5 102, 85153 #### [facility] [address] [place] [address], [facility] PLAT CNT 313 10*3/uL Normal 150-400 [facility] Comment on above: Performed By: #### 5 102, 92575 #### [facility] [address] [place] [address], [facility] RBC (Bld) [#/Vol] 4.31 10*6/uL Normal 3.80-5.00 [facility] Comment on above: Performed By: #### 5 0103, 79389 #### [facility] [address] [place] [address], [facility] WBC (Bld) [#/Vol] 7.26 10*3/uL Normal 4.00-10.60 The [facility] Comment on above: Performed By: #### 5 0103, 69281 #### [facility] [address] [place] [address], [facility] COMP METABOLIC PANELon 10-05 Albumin [Mass/Vol] 4.6 g/dL Normal 3.5-5.7 [facility] Comment on above: Performed By: #### 0 0121 #### [facility] [address] ALKALINE PHOSPH 34 IU/L Normal 34-104 [facility] Comment on above: Performed By: #### 0 0121 #### [facility] [address] [place] [address], [facility] ALT [Catalytic activity/Vol] 28 U/L Normal 7-52 [facility] Comment on above: Performed By: #### 0 0121 #### [facility] [address] AST [Catalytic activity/Vol] 19 U/L Normal 13-39 [facility] Comment on above: Performed By: #### 0 0121 #### [facility] [address] [place] [address], [facility] Bilirubin [Mass/Vol] 0.7 mg/dL Normal 0.3-1.0 [facility] Comment on above: Performed By: #### 0 0121 #### [facility] [address] [place] [address], [facility] Calcium [Mass/Vol] 9.6 mg/dL Normal 8.6-10.3 The [facility] Comment on above: Performed By: #### 0 0121 #### [facility] [address] [place] [address], [facility] Chloride [Moles/Vol] 105 mmol/L Normal 98-107 [facility] Comment on above: Performed By: #### 0 0121 #### [facility] [address] [place] [address], [place] CO2 [Moles/Vol] 27 mmol/L Normal 21-31 The [place] Comment on above: Performed By: #### 0 0121 #### [facility] [address] [facility] [place] [address], [facility] Creatinine [Mass/Vol] 0.60 mg/dL Normal 0.60-1.20 [facility] Comment on above: Performed By: #### 0 0121 #### [facility] [address] [place] [address], [place] GFR/1.73 sq M predicted among blacks MDRD (S/P/Bld) [Vol rate/Area] mL/min/{1.73_m2} Normal >60 [facility] Comment on above: Performed By: #### 0 0121 #### [facility] [address] [place] [address], [place] GFR/1.73 sq M predicted among non-blacks MDRD (S/P/Bld) [Vol rate/Area] mL/min/{1.73_m2} Normal >60 [facility] Comment on above: Performed By: #### 0 0121 #### [facility] [address] [place] [address], [place] Glucose [Mass/Vol] 106 mg/dL High 70-100 [facility] Comment on above: Performed By: #### 0 0121 #### [facility] [address] [place] [address], [facility] Potassium [Moles/Vol] 4.0 mmol/L Normal 3.5-5.1 [facility] Comment on above: Performed By: #### 0 0121 #### [facility] [address] [place] [address], [place] Protein [Mass/Vol] 7.7 g/dL Normal 6.0-8.3 The [facility] Comment on above: Performed By: #### 0 0121 #### [facility] [address] [place] [address], [facility] Sodium [Moles/Vol] 141 mmol/L Normal 136-145 The [facility] Comment on above: Performed By: #### 0 0121 #### [facility] [address] [place] [address], [facility] Urea nitrogen [Mass/Vol] 22 mg/dL Normal 7-25 [facility] Comment on above: Performed By: #### 0 0121 #### [facility] [address] [place] [address], [facility] COMPLEMENT 310-05-2018 COMPLEMENT 3 151 mg/dL Normal 79-152 The [facility] Comment on above: Performed By: #### 1 0220, 83834, 08214, 49994 #### [facility] [address] [place] [address], [facility] COMPLEMENT 410-05-2018 COMPLEMENT 4 21 mg/dL Normal 16-38 The [facility] Comment on above: Performed By: #### 1 0220, 34431, 95260, 37417 #### [facility] [address] [place] [address], [facility] CREATININE URINE RANDOMon Creatinine [Mass/Vol] 109.0 mg/dL Normal [facility] Comment on above: Result Comment: Ther e are no established reference values for random urine specimens Performed By: #### 4 7062, 96634 #### [address] CYCLIC [place]INATED PEPTIDE [place] [id number] 10-05-2018 CYCLIC CIT PEP 3 Units Normal 0-19 The Dorota regan [facility] Comment on above: Result Comment: INTE RPRETIVE INFORMATION: Cyclic Citrullinated Peptide Antibody, IgG 19 Units or less ................... Negative 20-39 Units ........................ Weak Positive 40-59 Units ........................ Moderate Positive 60 Units or greater ................ Strong Positive Anti-cyclic citrullinated peptide (anti-CCP), IgG antibodies are present in about 69-83 percent of patients with rheumatoid arthritis (RA) and have specificities of 93-95 percent. These autoantibodies may be present in the preclinical phase of disease, are associated with future RA development, and may predict radiographic joint destruction. Patients with weak positive results should be monitored and testing repeated. Performed by [employer], [address] [place] [id number] [email or web address], Carlos Montoya MD - Lab. Director FOOT LEFT 3 [facility] 10-05-2018 FOOT LEFT 3 [facility] Department of Radiology [address] [place] [phone] Patient Name: ALIYA MOSLEY : 1965 Sex: F Age: Race: White Pt. Location: [facility] Patient Status: Ordered Date: 10/05/2018 9:55:00 AM Completed Date: 10/05/2018 10:07 AM Requesting Provider: NAYA PRITCHETT Attending Provider: Report Copy To: Signs & Symptoms: M25.50 Pain in unspecified joint I10 History: [place] Comments: , , , Ordering Provider - NAYA PRITCHETT MD , Exam: FOOT LEFT 3 VWS FOOT LEFT 3 VWS 10/05/2018 10:07 AM EDT SIGNS AND SYMPTOMS: M25.50 Pain in unspecified joint I10 TECHNOLOGIST COMMENTS: bilateral foot pain-all over no trauma left heel pain hx:cancer with chemo QUESTION FOR THE RADIOLOGIST: , , , Ordering Provider - NAYA PRITCHETT MD , PROTOCOL: AP,Lateral and Oblique views were obtained. COMPARISON: None FINDINGS: Soft tissues: Normal Bones: No fracture Joints: Normal. Calcaneal spurring IMPRESSION: 1. Calcaneal spurring Electronically signed by:Gene Irwin. Transcribed by: [email or web address], User Resident: Electronically Signed by: GENE IRWIN @ 10/05/2018 02:39 PM Normal [facility] Comment on above: Order Comment: , , = ========= , Ordering Provider - NAYA PRITCHETT MD , FOOT RIGHT 3 Son 9 FOOT RIGHT 3 S [facility] Department of Radiology [address] [place] [phone] Patient Name: ALIYA MOSLEY : 1965 Sex: F Age: Race: White Pt. Location: 264 Patient Status: Ordered Date: 10/05/2018 9:55:00 AM Completed Date: 10/05/2018 10:07 AM Requesting Provider: NAYA PRITCHETT Attending Provider: Report Copy To: Signs & Symptoms: M25.50 Pain in unspecified joint I10 History: [place] Comments: , , , Ordering Provider - NAYA PRITCHETT MD , Exam: FOOT RIGHT 3 VWS FOOT RIGHT 3 VWS 10/05/2018 10:07 AM EDT SIGNS AND SYMPTOMS: M25.50 Pain in unspecified joint I10 TECHNOLOGIST COMMENTS: bilateral foot pain-all over no trauma left heel pain hx:cancer with chemo QUESTION FOR THE RADIOLOGIST: , , , Ordering Provider - NAYA PRITCHETT MD , PROTOCOL: AP,Lateral and Oblique views were obtained. COMPARISON: None FINDINGS: Soft tissues: Normal Bones: Fracture Joints: Normal. Calcaneal spurring IMPRESSION: 1. Calcaneal spurring Electronically signed by:Gene Irwin. Transcribed by: [email or web address], User Resident: Electronically Signed by: GENE IRWIN @ 10/05/2018 02:38 PM Normal [facility] Comment on above: Order Comment: , , = ========= , Ordering Provider - NAYA PRITCHETT MD , RHEUMATOID FACTOR SERUMon RA <20 Normal 0-20 [facility] Comment on above: Performed By: #### 1 0220, 43195, 02594, 08015 #### [facility] [address] [place] [address], [facility] SCL 70 [id number] 10-05-2018 SCLERODERMA AB (SCL-70) 0 AU/mL Normal 0-40 [place] [facility] Comment on above: Result Comment: INTE RPRETIVE INFORMATION: Scleroderma (Scl-70) (DOC) Ab, IgG 29 AU/mL or Less ............. Negative 30 - 40 AU/mL ................ Equivocal 41 AU/mL or Greater .......... Positive The presence of Scl-70 antibodies (also referred to as topoisomerase I, matthieu-I or UMESH) is considered diagnostic for systemic sclerosis (SSc). Scl-70 antibodies alone are detected in about 20 percent of SSc patients and are associated with the diffuse form of the disease, which may include specific organ involvement and poor prognosis. Scl-70 antibodies have also been reported in a varying percentage of patients with systemic lupus erythematosus (SLE). Scl-70 (matthieu-1) is a DNA binding protein and anti-DNA/DNA complexes in the sera of SLE patients may bind to matthieu-I, leading to a false-positive result. The presence of Scl-70 antibody in sera may also be due to contamination of recombinant Scl-70 with DNA derived from cellular material used in immunoassays. Strong clinical correlation is recommended if both Scl-70 and dsDNA antibodies are detected. Negative results do not necessarily rule out the presence of SSc. If clinical suspicion remains, consider further testing for centromere, RNA polymerase III and U3-MIXING TECHNICIAN, PM/Scl, or Th/To antibodies. Performed by [employer], [address] [place] [id number] [email or web address], Carlos Montoya MD - Lab. Director SEDIMENTATION RATEon 019 SED RATE 10 mm/hr Normal 0-20 [place] [facility] Comment on above: Performed By: #### 5 0103, 18914 #### [facility] [address] [place] [address], [facility] SJOGRENS ANTIBODIESon 2018 SS-A Negative Normal NEG,NEGATIVE,N eg [facility] Comment on above: Performed By: #### 5 0103, 26511 #### [facility] [address] [place] [address], [facility] SS-B Negative Normal NEG,NEGATIVE,N eg [facility] Comment on above: Performed By: #### 5 0103, 82429 #### [facility] [address] [place] [address], [place] T PROT UR [place] 10-05-2018 Protein [Mass/Vol] 10.0 mg/dL Normal [facility] Comment on above: Result Comment: Ther e are no established reference values for random urine specimens Performed By: #### 4 1802, 55017 #### [facility] [address] [place] [address], [place] URINALYSISon 10-05-2018 Appearance (U) SL CLOUDY Abnormal CLEAR The [facility] Comment on above: Performed By: #### 1 0008 #### [facility] [address] [place] [address], [place] Bilirubin [Mass/Vol] Negative Normal NEGATIVE [facility] Comment on above: Performed By: #### 1 0008 #### [facility] [address] [place] [address], [place] BLOOD Negative Normal NEGATIVE [facility] Comment on above: Performed By: #### 1 0008 #### [facility] [address] [place] [address], [place] Color (U) YELLOW Normal YELLOW [facility] Comment on above: Performed By: #### 1 0008 #### [facility] [address] [place] [address], [place] EPIS MANY Abnormal FEW,OCC,NONE SEEN [facility] Comment on above: Performed By: #### 1 0008 #### [facility] [address] [place] [address], [facility] Glucose [Mass/Vol] Negative Normal NEGATIVE The [facility] Comment on above: Performed By: #### 1 0008 #### [facility] [address] [place] [address], [facility] KETONE Negative Normal NEGATIVE [facility] Comment on above: Performed By: #### 1 0008 #### [facility] [address] [place] [address], [facility] LEUK LEONELA TRACE Abnormal NEGATIVE [facility] Comment on above: Performed By: #### 1 0008 #### [facility] [address] [place] [address], [facility] MUCUS THREADS FEW Abnormal NONE SEEN The [facility] Comment on above: Performed By: #### 1 0008 #### [facility] [address] [place] [address], [facility] Nitrite Ql (U) Negative Normal NEGATIVE The [facility] Comment on above: Performed By: #### 1 0008 #### [facility] [address] [place] [address], [facility] pH (Bld) 5.0 Normal 5.0-8.0 [facility] Comment on above: Performed By: #### 1 0008 #### [facility] [address] [place] [address], [facility] Protein (U) [Mass/Vol] Negative Normal NEGATIVE [facility] Comment on above: Performed By: #### 1 0008 #### [facility] [address] [place] [address], [facility] RBC (U) [#/Vol] 0-2 Abnormal NONE SEEN The [place] Comment on above: Performed By: #### 1 0008 #### [facility] [address] [place] [address], [facility] SPEC GRAV 1.016 Normal 1.015-1.020 [facility] Comment on above: Performed By: #### 1 0008 #### [facility] [address] [place] [address], [facility] WBC UA 3-5 Abnormal NONE SEEN [facility] Comment on above: Performed By: #### 1 0008 #### [facility] [address] [place] [address], [facility] JESS Screenon 09-08-2018 JESS Screen Positive Abnormal NEG [facility] Comment on above: Result Comment: This test was run on the [employer] JESS test system. The system provides ten test results (HEp-2NA, dsDNA, SSA, SSB, Sm, MIXING TECHNICIAN, Scl-70, Anabelle-1, Centromere and Histone analytes) from a single patient sample. A specimen that is JESS screen positive is positive for any one or more of the nine analytes and/or the Hep-2NA. These tests are available as add-on orders without having to re-collect the blood. We recommend ordering an JESS profile. Please fax add-on orders to [phone]. Performed By: #### C RP, SED #### [address] [place] [address] [employer]: Pablo Bah MD #### RA, ANASC, DSDNA #### [facility] [place] [address] [place] [address] [id number] [employer]: Onur Mazariegos MD Anti-dsDNAon 09-08-2018 Anti-dsDNA 204 IU/mL High <100 [facility] Comment on above: Result Comment: REFERENCE RANGE: Negative <100 IU/mL Positive >120 IU/mL Equivocal 100-120 IU/mL Performed By: #### C RP, SED #### [facility] [address] [address] [employer]: Pablo Bah MD #### RA, ANASC, DSDNA #### [place] [id number] [place], [place] [id number] [employer]: Onur Mazariegos MD RA Screenon 09-08-2018 RA Screen <10 Normal <14 [facility] Comment on above: Performed By: #### C RP, SED #### [facility] [address] [place] [address] Grinder Hardboard: Pablo Bah MD #### RA, ANASC, DSDNA #### [address] [id number] Grinder Hardboard: Onur Mazariegos MD C-Reactive Proteinon 019 CRP [Mass/Vol] 1.4 mg/L Normal 0.0-5.0 [facility] Comment on above: Performed By: #### C RP, SED #### [facility] [address] [place] [address] Grinder Hardboard: Pablo Bah MD #### RA ANASC, DSDNA #### [address] [id number] Grinder Hardboard: Onur Mazariegos MD Sedimentation Rateon 019 Sedimentation Rate 8 mm Normal 0-20 [facility] Comment on above: Performed By: #### C RP, SED #### [facility] [address] [place] [place] [address] Grinder Hardboard: Pablo Bah MD #### , ANASC, DSDNA #### [address] [id number] Grinder Hardboard: Onur Mazariegos MD Encounters Encounter Date Encounter Type Care Provider Facility Start: 09-13-2022 ambulatory Lilly Underwood MD Faci lity:[facility] Start: 08-19-2022 End: 08-20-2022 ambulatory Lilly Underwood MD Facility:[facility] Start: 03-15-2022 End: 03-16-2022 ambulatory Lilly Underwood MD Facility:[facility] Start: 10-30-2021 End: 10-31-2021 ambulatory CONSULTING GROUP ANALYST SABA CORRALES Facility:[facility] Start: 02-22-2021 End: 02-22-[address] GODWIN LOPEZ Facility:[facility] Start: 12-10-2019 Office Services Yaquelin denney Other [facility] Office Start: 02-27-2019 End: 02-28-2019 Patient encounter procedure KAREN MEYERS [facility] Start: 01-29-2019 End: 01-30-2019 Patient encounter procedure KAREN MEYERS [facility] Start: 01-29-2019 End: 01-29-2019 Subsequent hospital visit by physician [facility] Comment on above: Obstructive sleep ap juana Start: 01-01-2019 End: 01-04-2019 Patient encounter procedure KAREN CRISTO [facility] Start: 01-01-2019 End: 01-03-2019 Subsequent hospital visit by physician Camille Sarkar Dr Room 4 [facility] Comment on above: Left groin pain susp ect OA hip vs avascular necrosis hip Start: 09-07-2018 End: 09-08-2018 Patient encounter procedure [facility] Start: 08-03-2018 End: 08-06-2018 Patient encounter procedure [facility] Procedures Date Procedure Procedure Detail Performing Clinician Start: 12-10-2019 Doc meds verified w/ pt or re Yaquelin Benavidez Start: 02-27-[address] gtt 3 specimens KAREN VIEIRA Start: 02-27-2019 Lipid panel KAREN VIEIRA Start: 01-29-2019 Sleep std airflow hr t rate&o2 sat effort unatt KAREN VIEIRA Start: 01-01-2019 Radex hip unilateral with pelvis 2-3 views KAREN VIEIRA Start: 01-01-2019 Radex hip unilateral with pelvis 2-3 views Karen Vieira Work Phone: Start: 09-07-2018 Antinuclear antibodies jess KAREN VIEIRA Start: 09-07-2018 C-reactive protein KAREN VIEIRA Start: 09-07-2018 Dna antibody [place]/ double stranded KAREN VIEIRA Start: 09-07-2018 Rheumatoid factor quantitative KAREN VIEIRA Start: 09-07-2018 Sedimentation rate r bc automated KAREN VIEIRA Start: 08-03-2018 Dup-scan xtr veins unilateral/limited study KAREN VIEIRA Plan of Treatment Date Care Activity Detail Author Start: 03-15-2023 ambulatory Ambulatory Facility:[facility] Start: 11-21-2020 Breast cancer screen Breast cancer s rubia [place], [place] Start: 01-02-2020 Influenza vaccination Flu vaccine (# 1) [place], [place] Comment on above: Postponed from 10/29 (Patient Refused) Start: 02-07-2019 End: 02-07-2019 Office Visit 02/07/2019 Office Visit Internal Medicine Karen Vieira MD [address] [place] [address], [place] [address] Karen Vieira MD Start: 01-22-2019 DTaP/Tdap/Td vaccine (1 - Tdap) DTaP/Tdap/Td vaccine (1 - Tdap) [place] Comment on above: Postponed from 11/17 (Not Indicated) Start: 04-04-2018 Shingles Vaccine (2 of 2) Shingles Vaccine (2 of 2) [place] Start: 11-17-2013 Colon cancer screen colonoscopy Colon cancer screen colonoscopy [place], [place] Start: 2003 Diabetes screen Diabetes screen [place], [place] Start: 2003 Lipid screen Lipid screen [place], [place] Start: 11-17-1974 DTaP/Tdap/Td vaccine (1 - Tdap) DTaP/Tdap/Td vaccine (1 - Tdap) [place], [place] End: 01-29-2019 Home Sleep Study [facility] Routine Obstructive sleep apnea 1 Occurrences starting 01/29/2019 until 01/29/2019 [place], [place] Comment on above: 1 Occurrences starti ng 01/29/2019 until 01/29/2019 Immunizations Immunization Date Immunization Notes Care Provider Marija thrasher 02-07-2018 zoster vaccine recombinant Mth 4 [place], [place] Payers Date Payer Category Payer Unknown 2018 Unknown [id number] 2018 Unknown BCBS BCBS OUT OF STATE xxxxxxxxxxxx 2018-Present [address] [place] [address] xxxxxxxxxxxx [id number] 1963 Unknown [id number] 1963 Unknown [id number] [id number] 1963 Unknown [id number] [id number] 1963 Unknown [id number] [id number] 1963 Unknown [id number] [id number] 1963 Unknown [id number] [id number] 1963 Unknown [id number] [id number] 1963 Unknown [id number] [id number] 1963 Unknown [id number] [id number] 1963 Unknown [id number] [id number] 1963 Unknown [id number] [id number] 1963 Unknown [id number] [id number] 1963 Unknown [id number] [id number] 1963 Unknown [id number] [id number] 1959 Unknown [id number] Social History Date Type Detail Facility Start: [facility] Start: 01-01-2019 Tobacco smoking stat us NHIS Former smoker [place], [place] End: 01-01-2007 History of tobacco use [place] End: 01-01-2007 History of tobacco use Cigarette [place] Start: 01-01-2019 Alcohol intake Yes Ember Etienne [place], [place] Start: 01-01-2019 History SDOH Stress 1 Lesvia paulette [place], [place] Start: 01-01-2019 History SDOH Financial 5 [place] Start: 01-01-2019 History SDOH IPV [facility] [place] [place] Start: 05-24-2013 Alcohol Comment occa Ember Alcantar [place] Sex Assigned At Not on file [place], [place] Start: 01-01-2019 Alcohol intake Current drinke r of alcohol (finding) [place], [place] Medical Equipment Procedure Code Equipment Code Equipment Origin al Text Equipment Identifier Dates Cement Palacos R + G Sing Dose 40gr [id number] Start: 10-06-2017 Cement Palacos R Sing Dose 40gr [id number] Start: 10-06-2017 Impl Knee All Po ly Pat Vit E 32mm [place] [id number] Start: 10-06-[address] ib Stm 5deg [place] R [id number] Start: 10-06-2017 Impl Knee Psn Fe m Cr Cmt Ccr Std Sz7 R [id number] Start: 10-06-2017 Impl Knee Psn As f Uc 12mm Ve R 4-11 Ef [id number] Start: 10-06-2017 Clinical Note 08-19-2022 Note Date & Type Note Facility 08-19-2022 Note BREAST IMAGING CONSU LTATION: 08/19/2022 CLINICAL: Breast Pain The patient reports intermittent left breast pain that has not been present for the last several days. No palpable lump. Comparison is made to exams dated: 09/08/2021 mammogram, 07/01/2020 ultrasound, 07/01/2020 mammogram, 12/18/2019 mammogram, 11/21/2018 mammogram, and 11/14/2017 mammogram - [facility]. There are scattered fibroglandular elements in both breasts that could obscure a lesion on mammography. Current study was also evaluated with a Computer Aided Detection (CAD) system. A square marker is noted at site of pain on the upper outer posterior left breast. No abnormality subjacent to the marker. There are stable benign appearing scattered calcifications in the right breast. There also are benign post operative findings in the right breast. No significant masses, calcifications, or other findings are seen in either breast. IMPRESSION: BENIGN Recommend follow-up and management of breast symptoms on a clinical basis. There is no mammographic evidence of malignancy. A 1 year screening mammogram is recommended. (08/20/2023) The patient was notified of the results. Investigation of a clinically suspicious lesion should not be precluded by the lack of specific imaging findings. 10-15% of breast cancers may not be detected on mammograms. [employer] supports annual screening mammography starting at age 40. Yosi Akbar MD /penrad:08/19/2022 08:27:17 copy to: KRIS CARBALLO PA-C, ph: [phone], fax: [phone] Warehouse Operations Manager(s): RT Aries(Rachel)(M), [facility] letter sent: New Norm Mamm/Ab History B1/2 Mammogram BI-RADS: 2 Benign Final Dictated by: Cezar Akbar MD Signed by: Cezar Akbar MD Signed (Electronic Signature): 08/19/2022 8:27 am (If Report Is Signed, Electronically Signed in Other Vendor System) [facility] Summary Purpose Family History No Family History Records FoundNo Family History Records FoundNo Family History Records FoundNo Family History Records FoundNo Family History Records Found Advance Directives No Advanced Directives Records FoundDocuments on File Type Date Recorded Patient Co Founder And Director Expl anation Advance Directives and Living Will Power of Black Leather Trimmer Latest Code Status on File Code Status Date Activated Date Inactivated Comments Full Code 10/06/2017 12:15 PM 10/07/2017 4:20 PM Full Code 10/06/2017 12:14 PM 10/06/2017 12:15 PM Full Code 10/06/2017 7:33 AM 10/06/2017 12:12 PM Full Code 02/27/2014 3:13 PM 02/28/2014 11:39 AM Full Code 02/26/2014 11:56 AM 02/27/2014 3:13 PM Documents on File Type Date Recorded Patient Co Founder And Director Expl anation Advance Directives and Living Will Power of Black Leather Trimmer Latest Code Status on File Code Status Date Activated Date Inactivated Comments Full Code 10/06/2017 12:15 PM 10/07/2017 4:20 PM Full Code 10/06/2017 12:14 PM 10/06/2017 12:15 PM Full Code 10/06/2017 7:33 AM 10/06/2017 12:12 PM Full Code 02/27/2014 3:13 PM 02/28/2014 11:39 AM Full Code 02/26/2014 11:56 AM 02/27/2014 3:13 PM Assessments Diagnosis Left groin pain suspect OA hip vs avascular necrosis hip Abdominal pain, left lower quadrant Diagnosis Obstructive sleep apnea Obstructive sleep apnea (adult) (pediatric) Reason for Referral Status Reason Specialty Diagnoses / Procedures Referred By Contact Referred To Contact [facility] Diagnoses Obstructive sleep apnea Procedures Home Sleep Study Karen Vieira MD [address] [place] [address], [facility] [place] [address] History of Present Illness * Inez Boss - 01/29/2019 1:00 PM EST Patient arrived for home sleep study. Instructed on home sleep monitoring device use and benefits. documented in this encounter Additional Source Comments INFORMATION SOURCE (unrecogn ized section and content) DATE CREATED AUTHOR 10/14/2018 [facility] DATE CREATED AUTHOR AUTHOR'S ORGANIZ ATION [facility] DATE CREATED AUTHOR AUTHOR'S ORGANIZ ATION 03/26/2020 [facility] DATE CREATED AUTHOR AUTHOR'S ORGANIZ ATION 11/03/2021 [facility] DATE CREATED AUTHOR AUTHOR'S ORGANIZ ATION 12/28/2022 [facility] Reason for Visit (unrecogniz ed section and content) Status Reason Specialty Diagnoses / Procedures Referred By Contact Referred To Contact [facility] Diagnoses Obstructive sleep apnea Procedures Home Sleep Study Karen Vieira MD [address] [facility], [facility] [place] [address] FOR RECORDS PERTAINING TO PATIENTS WHO ARE OR HAVE BEEN ENROLLED IN A CHEMICAL DEPENDENCY/SUBSTANCEABUSE PROGRAM, SOME INFORMATION MAY BE OMITTED. This clinical summary was aggregated from multiple sources. Caution should be exercised in using it in the provision of clinical care. This summary normalizes information from multiple sources, and as a consequence, information in this document may materially change the coding, format and clinical context of patient data. In addition, data may be omitted in some cases. CLINICAL DECISIONS SHOULD BE BASED ON THE PRIMARY CLINICAL RECORDS. [facility] [employer] [facility]. provides no warranty or guarantee of the accuracy or completeness of information in this document.
[2023-02-17 16:35] LABS: Basophils Absolute Auto 0.1 10^3/uL (0.0-0.1); Basophils Percent Auto 0.6 % (0.2-2.0); Eosinophils Absolute Auto 0.2 10^3/uL (0.0-0.7); Eosinophils Percent Auto 2.8 % (0.9-7.0); Hematocrit 39.5 % (36.0-48.0); Hemoglobin 12.8 g/dL (12.0-16.0); Immature Granulocytes Abs Auto 0.01 10^3/uL (0.00-0.03); Immature Granulocytes Pct Auto 0.1 % (0.0-0.5); Lymphocytes Absolute Auto 2.8 10^3/uL (1.2-3.8); Lymphocytes Percent Auto 34.6 % (20.5-60.0); Mean Corpuscular HGB Conc 32.4 g/dL (29.9-35.2); Mean Corpuscular Hemoglobin 29.5 pg (26.7-34.0); Monocytes Absolute Auto 0.5 10^3/uL (0.3-0.8); Monocytes Percent Auto 5.9 % (1.7-12.0); Neutrophils Absolute Auto 4.6 10^3/uL (1.4-6.5); Platelet Count 318 10^3/uL (150-450); Red Blood Count 4.34 10^6/uL (4.20-5.40); White Blood Count 8.1 10^3/uL (4.0-11.0)
[2023-02-17 16:53] LABS: Alanine Aminotransferase 45 U/L (14-59); Albumin Globulin Ratio 1.1; Albumin Level 3.8 g/dL (3.4-5.0); Alkaline Phosphatase 43 U/L (46-116); Anion Gap 9.2; Aspartate Amino Transferase 22 U/L (15-37); BUN Creatinine Ratio 33.9; Bilirubin Total 0.6 mg/dL (0.2-1.0); Calcium 9.9 mg/dL (8.5-10.1); Carbon Dioxide 30.6 mmol/L (21.0-32.0); Chloride 103 mmol/L (98-107); Estimated GFR (African America >60 (>=60); Estimated GFR (Non-African Ame >60 (>=60); Globulin 3.6 g/dL; Glucose 97 mg/dL (74-106); Magnesium 2.1 mg/dL (1.8-2.4); Phosphorus 3.9 mg/dL (2.6-4.7); Potassium 3.8 mmol/L (3.5-5.1); Sodium 139 mmol/L (136-145); Total Protein 7.4 g/dL (6.4-8.2)
[2023-02-17 16:57] LABS: Percent Iron Saturation 17.4 %
[2023-02-24 02:07] LABS: Vitamin B1 (Thiamine), Blood 177.8 nmol/L (66.5-200.0)
== END 2023-02-17 15:58 | disposition home or self-care (01) ==
PROVIDERS: PCP Nurse Practitioner
DX: M19.90 Unspecified osteoarthritis, unspecified site (principal); Z98.84 Bariatric surgery status; R60.9 Edema, unspecified
CPT/HCPCS: 36415; 80053; 82306; 82607; 82728; 82746; 83540; 83550; 83735; 84100; 84425; 85025

== ENCOUNTER 2023-06-02 15:12 | Outpatient (OUT) | payer BC, SELFPAY ==
[2023-06-02 15:33] LABS: Basophils Absolute Auto 0.1 10^3/uL (0.0-0.1); Basophils Percent Auto 0.8 % (0.2-2.0); Eosinophils Absolute Auto 0.2 10^3/uL (0.0-0.7); Eosinophils Percent Auto 2.1 % (0.9-7.0); Hematocrit 36.5 % (36.0-48.0); Hemoglobin 11.8 g/dL (12.0-16.0); Immature Granulocytes Abs Auto 0.03 10^3/uL (0.00-0.03); Immature Granulocytes Pct Auto 0.3 % (0.0-0.5); Lymphocytes Percent Auto 30.4 % (20.5-60.0); Mean Corpuscular HGB Conc 32.3 g/dL (29.9-35.2); Mean Corpuscular Hemoglobin 29.5 pg (26.7-34.0); Mean Corpuscular Volume 91.3 fL (81.0-99.0); Mean Platelet Volume 9.1 fL (9.5-13.5); Monocytes Absolute Auto 0.5 10^3/uL (0.3-0.8); Monocytes Percent Auto 5.3 % (1.7-12.0); Neutrophils Absolute Auto 6.1 10^3/uL (1.4-6.5); Neutrophils Percent Auto 61.1 % (43.0-75.0); Platelet Count 334 10^3/uL (150-450); Red Cell Distribution Width 12.7 % (11.0-15.0); White Blood Count 9.9 10^3/uL (4.0-11.0)
[2023-06-02 15:59] LABS: Percent Iron Saturation 25.5 %
[2023-06-02 16:02] LABS: Alanine Aminotransferase 52 U/L (14-59); Albumin Globulin Ratio 1.1; Albumin Level 3.7 g/dL (3.4-5.0); Alkaline Phosphatase 57 U/L (46-116); Anion Gap 11.7; Aspartate Amino Transferase 18 U/L (15-37); BUN Creatinine Ratio 50.9; Bilirubin Total 0.5 mg/dL (0.2-1.0); Carbon Dioxide 30.1 mmol/L (21.0-32.0); Chloride 104 mmol/L (98-107); Estimated GFR (African America >60 (>=60); Estimated GFR (Non-African Ame >60 (>=60); Globulin 3.5 g/dL; Glucose 103 mg/dL (74-106); Magnesium 2.1 mg/dL (1.8-2.4); Phosphorus 4.1 mg/dL (2.6-4.7); Potassium 3.8 mmol/L (3.5-5.1); Sodium 142 mmol/L (136-145); Total Protein 7.2 g/dL (6.4-8.2)
[2023-06-07 17:07] LABS: Vitamin B1 (Thiamine), Blood 194.7 nmol/L (66.5-200.0)
== END 2023-06-02 15:13 | disposition home or self-care (01) ==
LOC: LAB 15:13
PROVIDERS: PCP Nurse Practitioner
DX: R60.9 Edema, unspecified (principal); Z98.84 Bariatric surgery status; M19.90 Unspecified osteoarthritis, unspecified site
CPT/HCPCS: 36415; 80053; 82306; 82607; 82728; 82746; 83540; 83550; 83735; 84100; 84425; 85025